=== PATIENT | female | born 1975 | race Caucasian/White ===

== ENCOUNTER → 2018-06-28 | Outpatient (CLI) | payer MEDICAID ==
[~2018-06-28] MED LIST: LIDOCAINE 1% 300 MG/30 ML SDV ONE
== END ==
LOC: FIMAGING 12:10
PROVIDERS: ATTEND Physician Assistant
PROC: 07923ZX Drainage of Left Neck Lymphatic, Percutaneous Approach, Diagnostic (ICD-10-PCS; principal; 2018-06-28)
DX: E04.1 Nontoxic single thyroid nodule (principal)

== ENCOUNTER → 2018-07-10 | Outpatient (CLI) | payer MEDICAID | LOC: FIMAGING 11:02 | PROVIDERS: ATTEND Physician Assistant | DX: Z12.31 Encounter for screening mammogram for malignant neoplasm of breast (principal) ==

== ENCOUNTER 2018-07-18 14:55 | Emergency (ER) | payer MEDICAID ==
--- NOTE | 2018-07-18 15:00 | EDPHY ---
H & P Stated Complaint: Onset typical migraine since 6am;vomited sumatriptin Time Seen by Provider: 07/18/18 14:59 HPI/ROS: CHIEF COMPLAINT: Migraine headache HISTORY OF PRESENT ILLNESS: The patient presents to the ED with complaints of an acute migraine headache that began at 6:00 a.m. This morning. The patient describes a headache which originates at her occiput and radiates up to her frontal lobes bilaterally. The patient denies any history of fall or trauma. She states this is a fairly typical migraine pattern for her. She took sumatriptan x2 prior to arrival however was vomiting and was uncertain if this medication has been absorbed. The patient does admit she is under fair amount of stress. She does have a history of depression and anxiety. She also has a history of hypertension. The patient denies any complaints of neck the discomfort with movement, chest pain, difficulty breathing, abdominal pain or other acute complaints. REVIEW OF SYSTEMS: A comprehensive 10 point review of systems is otherwise negative aside from elements mentioned in the history of present illness. Source: Patient Exam Limitations: No limitations - Personal History LMP (Females 10-55): Hysterectomy Current Tetanus Diphtheria and Acellular Pertussis (TDAP): Yes - Medical/Surgical History Other PMH: migraines. HTN - Social History Smoking Status: Never smoked - Physical Exam Exam: General Appearance: Alert, no distress Eyes: Pupils equal and round no pallor or injection ENT, Mouth: Mucous membranes moist Respiratory: There are no retractions, lungs are clear to auscultation Cardiovascular: Regular rate and rhythm Gastrointestinal: Abdomen is soft and nontender, no masses, bowel sounds normal Neurological: A&O, normal motor function, normal sensory exam, normal cranial nerves Skin: Warm and dry, no rashes Musculoskeletal: Neck is supple nontender, specifically no meningeal symptoms Extremities: symmetrical, full range of motion Psychiatric: Patient is oriented X 3, there is no agitation Constitutional: Initial Vital Signs Temperature (C) 36.7 C 07/18/18 14:56 Heart Rate 90 07/18/18 14:56 Respiratory Rate 18 07/18/18 14:56 Blood Pressure 140/110 H 07/18/18 14:56 O2 Sat (%) 98 07/18/18 14:56 O2 Delivery Mode Room Air Allergies/Adverse Reactions: amoxicillin Allergy (Intermediate, Verified 07/18/18 15:00) yeast infections latex Allergy (Mild, Verified 07/18/18 15:00) Rash Home Medications: Medication Instructions Recorded Losartan Potassium [Cozaar 25 mg 25 mg PO 07/18/18 (*)] Ondansetron Odt [Zofran Odt 4 mg 4 mg PO Q6 PRN #10 tab 07/18/18 (*)] SUMAtriptan [Imitrex 25 MG (*)] 25 mg PO Q2H 07/18/18 buPROPion XL [Wellbutrin Xl] 300 mg PO DAILY 07/18/18 hydrOXYzine HCL [hydrOXYzine HCL 25 mg PO 07/18/18 (RX)] Medical Decision Making ED Course/Re-evaluation: The patient presents to the ED with a fairly typical headache. She had an IV established. She received 1 mg of Ativan, Reglan and Toradol intravenously. Neurologic examination demonstrates no focality. The patient has no clinical evidence of meningitis. There is nothing to suggest trauma as etiology of her presentation today. I re-evaluated the patient at 4:45 p.m.. She is feeling much better. Her headache has resolved. Her neurologic examination remains normal. She would like to be discharged home. The patient did receive IV Ativan and will be driven home by her . Patient is discharged home with customary aftercare instructions and return precautions. Differential Diagnosis: Differential diagnosis considered includes migraine headache, tension headache, meningitis and less likely subarachnoid hemorrhage - Data Points Medications Given: Discontinued Medications Ketorolac Tromethamine (Toradol) 30 mg IVP EDNOW ONE Stop: 07/18/18 15:20 Last Admin: 07/18/18 15:30 Dose: 30 mg Lorazepam (Ativan Injection) 1 mg IVP EDNOW ONE Stop: 07/18/18 15:20 Last Admin: 07/18/18 15:30 Dose: 1 mg Metoclopramide HCl (Reglan Injection) 10 mg IVP EDNOW ONE Stop: 07/18/18 15:20 Last Admin: 07/18/18 15:30 Dose: 10 mg Departure - Departure Disposition: Home, Routine, Self-Care Clinical Impression: Migraine headache Condition: Good Instructions: Acute Headache (ED) Additional Instructions: 1. Please continue your regular headache medications as needed. 2. Zofran as needed for nausea and vomiting. 3. Please return to the ED for recurrent headache, fever, neck stiffness, numbness, weakness or other concerns. Referrals: Aleshia Lynn PA [Primary Care Provider] - As per Instructions
[2018-07-18] MEDS ORDERED: METOCLOPRAMIDE 10 MG/2 ML VIAL IVP ONE (15:19)
[2018-07-18] MEDS ORDERED: LORazepam 2 MG/ML INJ IVP ONE (15:19)
[2018-07-18] MEDS ORDERED: KETOROLAC 30 MG/1 ML SDV IVP ONE (15:19)
[2018-07-18 16:56] VITALS: BP 155/97
== END 2018-07-18 16:55 | disposition home or self-care (01) ==
DX: G43.909 Migraine, unspecified, not intractable, without status migrainosus (principal); I10 Essential (primary) hypertension
CPT/HCPCS: 96374; J1885; J2060; J2765